=== PATIENT | male | born 1950 | race Caucasian/White ===

== ENCOUNTER 2017-01-10 20:02 | Emergency (ER) | payer MEDICARE, OTHER ==
--- NOTE | 2017-01-13 07:04 | ER ---
ADMIT: 01/10/2017 RM/LOC: ER [facility] MR#: [id number] [address] [facility] [address], [place] [id number] [address] [place] [address] Emergency Room Report SEX: M AGE: 66 : 1950 DATE: 01/10/2017 HISTORY OF PRESENT ILLNESS: Mr. 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 He is on Plavix. He has a history of Parkinson's, BPH, and CVA. MEDICATIONS: See T-sheet. ALLERGIES: SEE T-SHEET. PHYSICAL EXAMINATION: VITAL SIGNS: Blood pressure, systolic is 180/51. Heart rate is 58, respirations 20, temp 98.6, O2 sats 98%. EXTREMITIES: The did apply some powder to stop the bleeding, but in spite of that, he is still bleeding, so she brought him for further evaluation. Surgicel was applied to the area, which was very helpful, the bleeding stopped. The dressing was applied to the foot and he was discharged to home. CLINICAL IMPRESSION: Abrasion to toes, left foot. PLAN: He was discharged. See T-sheet for further instructions. ALDO Hamilton / Alin Victoria MD / haley JOB #: [id number] CC: Alin Victoria MD, Attending Physician Jac Quiles MD, Family Physician
== END 2017-01-10 21:40 | disposition home or self-care (01) ==
LOC: ER 20:02
DX: S90.415A Abrasion, left lesser toe(s), initial encounter (principal); Z86.73 Personal history of transient ischemic attack (TIA), and cerebral infarction without residual deficits; Z79.01 Long term (current) use of anticoagulants; Z79.82 Long term (current) use of aspirin; Z79.899 Other long term (current) drug therapy; W22.8XXA Striking against or struck by other objects, initial encounter; Y92.009 Unspecified place in unspecified non-institutional (private) residence as the place of occurrence of the external cause

== ENCOUNTER → 2017-01-10 | Outpatient (CLI) | payer MEDICARE, OTHER ==
[~2017-01-10] MED LIST: ACTOS45 MG PO; ASA CHILDREN'S81 MG PO; AVODART0.5 MG PO; CRESTOR10 MG PO; FLOMAX DPS0.4 MG PO; GLUCOPHAGE500 MG PO; HYDROCODONE 5MG/5 MG PO; HYZAAR-100/251 TAB PO; KLOR-CON M2020 ME1 PO; MAALOX DPS30 ML PO; MICRONASE DPS5 MG PO; MILK OF MAGNESI10 ML PO; NORVASC DPS10 MG PO; OMEGA-3 DPS1000 MG PO; PLAVIX75 MG PO; PRILOSEC DPS20 MG PO; SENOKOT S1 TAB PO; SINEMET 25/1001 TAB PO; SYMBICORT160 MCG/6 IH; TOPROL XL DPS50 MG PO
== END | disposition home or self-care (01) ==
LOC: RAD.S 01-08 12:33 → PTH.S 15:03 → RAD.S 16:00
DX: R31.9 Hematuria, unspecified (principal); Z98.890 Other specified postprocedural states